=== PATIENT | male | born 1955 | race Caucasian/White ===

== ENCOUNTER 2016-09-13 08:55 | Inpatient (IN) | payer BC ==
[2016-08-15 07:56] VITALS: BMI 31.0
--- NOTE | 2016-08-15 08:38 | PAT Medication Instructions ---
Service Date Aug 15, 2016. Current Home Medication List Aspirin (Aspirin Ec), 81 MG PO QAM Fish Oil ([place]-3), 2 CAP PO QAM Lzxmalcktrm-Hmerpalaytc-Hum C- (Glucosamine Chondroitin), 2 CAP PO QAM Levothyroxine Sodium (Synthroid), 125 MCG PO QAM Meloxicam (Mobic), Unknown Dose PO QAM Multivitamin (Multivitamin), 1 TAB PO QAM Probiotic Product (Probiotic), 1 CAP PO QAM Tadalafil (Cialis), 2.5 MG PO PO PRN for NOON Tamsulosin Hcl (Flomax), 0.4 MG PO QPM Medication Instructions For Your Scheduled Surgery - Hold the following medications 10 days prior to surgery: Fish Oil ([place]-3), 2 CAP PO QAM Gtelksepgja-Tptkdjsrgcs-Ytu C- (Glucosamine Chondroitin), 2 CAP PO QAM Meloxicam (Mobic), Unknown Dose PO QAM - Hold the following medications 24 hours prior to surgery: Tadalafil (Cialis), 2.5 MG PO PO PRN for NOON - Hold the following medications the morning of surgery: Multivitamin (Multivitamin), 1 TAB PO QAM Probiotic Product (Probiotic), 1 CAP PO QAM - Take the following medications the morning of surgery with a sip of water: Levothyroxine Sodium (Synthroid), 125 MCG PO QAM Aspirin (Aspirin Ec), 81 MG PO QAM - Take the following medications as scheduled the night before surgery: Tamsulosin Hcl (Flomax), 0.4 MG PO QPM If you have any questions please call us at [phone] or [phone] ( [place]) or [phone]
[2016-08-15 09:25] LABS: BASO % 0.8 %; BASO ABS # 0.06 K/uL (0-0.2); COMPLETE YES; EOS % 3.1 %; IG% 0.3 %; LYMPH % 26.2 %; MEAN CELL VOLUME 91.9 fL (80-100); MEAN CORPUSCULAR HEMOGLOBIN 32.4 pg (25-34); MEAN CORPUSCULAR HGB CONC 35.2 g/dl (32-36); MEAN PLATELET VOLUME 10.9 fL (7.4-10.4); MONO % 11.4 %; NEUT % 58.2 %; PLATELET COUNT 229 K/uL (130-400); RED BLOOD COUNT 5.44 M/uL (4.7-6.1); WHITE BLOOD COUNT 7.63 K/uL (4.8-10.8)
[2016-08-15 09:34] LABS: PROTHROMBIN TIME (PATIENT) 10.5 SECONDS (9.0-12.0)
[2016-08-15 09:57] LABS: BLOOD UREA NITROGEN 22 mg/dl (7-18); BUN/CREATININE RATIO 15.6 (10-20); C-REACTIVE PROTEIN < 0.29 mg/dl (0-0.29); CALCIUM 9.7 mg/dl (8.5-10.1); CARBON DIOXIDE 28 mmol/L (21-32); CHLORIDE 107 mmol/L (98-107); GLUCOSE 90 mg/dl (70-99); POTASSIUM 4.6 mmol/L (3.5-5.1); SODIUM 142 mmol/L (136-145)
--- NOTE | 2016-09-04 22:34 | HISTORY & PHYSICAL EXAMINATION ---
DATE OF ADMISSION: 09/13/2016 CHIEF COMPLAINT: Right knee pain. 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 He has got a long history of right knee problems. He underwent left partial knee replacement about 5 months ago and has done well from this. He continues to be limited by his right knee pain and discomfort. As his left knee has gotten better, he has been more active and having more pain in his right knee. It is global pain. It is increased with weightbearing. He has been through extensive conservative treatment and would like to have his right knee replaced. PAST MEDICAL HISTORY: Includes: 1. Arthritis. 2. Prostate disease and question of early cancer. 3. Hypothyroidism. PAST SURGICAL HISTORY: Includes: 1. Left partial knee replacement done on 03/25/2016. 2. Left knee arthroscopy. 3. Multiple right knee operations, two in 1970s and one in 1973. ALLERGIES: None. CURRENT MEDICINES: Include: 1. Levothyroxine 125 mcg a day. 2. Flomax once a day. 3. Tramadol p.r.n. for pain. 4. Cialis. 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 He is . He does not drink. FAMILY HISTORY: Noncontributory. REVIEW OF SYSTEMS: Negative for diabetes, neurologic problems, vascular problems, bleeding disorders. Denies any chest pain, no shortness of breath. No history of DVT or PE. PHYSICAL EXAMINATION: GENERAL: Reveals a healthy, pleasant middle-aged male. He looks to be in good health. HEENT: Benign. NECK: Supple. No lymphadenopathy. LUNGS: Clear to auscultation. HEART: Regular rate and rhythm. ABDOMEN: Soft, nontender, nondistended. EXTREMITIES: Grossly neurovascularly intact except as follows. Examination of his right knee reveals the patient walks with a slight valgus alignment to his knee. He has got a pretty significant medial incision. His range of motion is about 5 degrees short of full extension, 110 degrees of flexion. Very small knee effusion. He has got crepitance with knee motion. X-RAYS: X-rays of the right knee were reviewed. They show advanced right knee tricompartmental DJD. He has got complete loss of his lateral joint space. He does have tricompartmental disease. Looks very chronic. He has got osteophytes in all 3 compartments. He does have a benign appearing chondral lesion/bony infarct in the distal femur. 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 He has failed conservative treatment and would like to have his right knee replaced. PLAN: We will take him to the operating room and do right total knee replacement. The risks and benefits of this procedure were explained to the patient including but not limited to DVT, PE, , infection, neurological injury, vascular injury, bleeding problem, pain, limited range of motion, stiffness, failure to relieve symptoms, persistent pain, need for revision surgery, etc. The patient understands and desires to proceed. Informed consent was obtained. The patient had preoperative workup. His workup was essentially all negative. EKG showed sinus bradycardia. Labs were all normal. We will likely put some vancomycin in the cement due to multiple surgeries in the past. I will see him back 2 weeks postop.
[~2016-09-13] VITALS: Ht 172.7 cm; Wt 91.9 kg
[2016-09-13] VITALS (8 sets, daily range): BP systolic 97–159; BP diastolic 63–94; PULSE 57–73; TEMP 36.4–37.2; O2SAT 93–98; Ht 172.7 cm; Wt 91.9 kg
[~2016-09-13 08:55] MED LIST: ACETAMINOPHEN 500 MG TAB PO SCH; ASPI81TA28 PO; BUPIVACAINE 0.25% 30 ML VIAL ONE; BUPIVACAINE 0.5 % 5 MG/1 ML PF 10ML VIAL ONE; BUPIVACAINE LIPOSOME 266 MG, BUPIVACAINE/EPINEPHRINE INJ 50 ML, SODIUM CHLORIDE 0.9% PF... INFIL SCH; CEFAZOLIN 2000 MG/60 ML D5W 60 ML IV SCH; FAMOTIDINE 20 MG TAB PO SCH; GABAPENTIN 300 MG CAP PO SCH; GLUC1CAP35 PO; LACTATED RINGER'S 1000ML 1,000 ML IV SCH; LACTATED RINGER'S 1000ML 500 ML IV ONE; LACTATED RINGER'S 1000ML IV SCH; LEVO125T72 PO; MELO7.5T5 PO; METOCLOPRAMIDE HCL 10 MG TAB PO SCH; MISCCAP80 PO; MULT-506 PO; OMEG10007 PO; SCOPOLAMINE 1.5 MG TDSY TD SCH; TADA2.5T PO; TAMS0.4C38 PO; TRANEXAMIC ACID INJ 1,000 MG in SODIUM CHLORIDE 0.9% 100ML 100 ML IV SCH
[2016-09-13] MEDS ORDERED: VANCOMYCIN HCL 1000MG/20ML VIAL ONE (09:28)
[2016-09-13] MEDS ORDERED: MIDAZOLAM HCL 1 MG/ML 2ML VIAL ONE ×2 (09:37)
[2016-09-13] MEDS ORDERED: FENTANYL CITRATE INJ 50 MCG/1 ML 2 ML VIAL ONE (09:37)
[2016-09-13] MEDS ORDERED: PROPOFOL IV EMULSION 10 MG/ML 20 ML VIAL IV ONE (09:37)
[2016-09-13] MEDS ORDERED: LIDOCAINE HCL 2% 2 ML VIAL (20MG/ML) ONE (09:37)
--- NOTE | 2016-09-13 10:29 | History & Physical Bridge Note ---
H&P Re-Evaluation Bridge Note: I have examined the patient, reviewed the History & Physical and in the interval since the performance of the History & Physical I have noted the following changes of clinical significance: No changes noted
[2016-09-13] MEDS ORDERED: BUPIVACAINE/EPINEPHRINE 0.25% 1:200,000 30 ML VIAL ONE (10:52)
[2016-09-13] MEDS ORDERED: BACITRACIN 50000 UNIT VIAL ONE (10:52)
[2016-09-13] MEDS ORDERED: SODIUM CHLORIDE 0.9% PF 50 ML VIAL ONE (10:52)
[2016-09-13] MEDS ORDERED: KETAMINE HCL INJ 50 MG/ML 10 ML VIAL ONE (11:02)
[2016-09-13] MEDS ORDERED: PHENYLEPHRINE 100MCG/ML 5ML SYR ONE (12:29)
--- NOTE | 2016-09-13 12:29 | [facility] Post Operative Brief Note ---
Immediate Operative Summary Operative Date Sep 13, 2016. Pre-Operative Diagnosis Advanced Right Knee Degenerative Joint Disease Post-Operative Diagnosis Advanced Right Knee Degenerative Joint Disease Procedure(s) Performed Right Total Knee Arthroplasty Surgeon Dr. Colon Insurance Auditor Surgeon(s) TAD Wright Estimated Blood Loss 50cc Findings Right Knee DJD Fluids (cc crystalloids) 1000 cc Specimens A. Right Knee Bone and Tissue Drains NONE Anesthesia Spinal Complication(s) None Disposition Recovery Room / PACU
[2016-09-13] MEDS ORDERED: ZOLPIDEM TARTRATE 5 MG TAB PO PRN (12:30)
[2016-09-13] MEDS ORDERED: DiphenhydrAMINE HCL 50 MG/ML VIAL IV PRN (12:30)
[2016-09-13] MEDS ORDERED: SILVER SULFADIAZINE 1% CR 50 GM JAR EXT PRN (12:30)
[2016-09-13] MEDS ORDERED: TAMSULOSIN HCL 0.4 MG CAP PO PRN (12:30)
[2016-09-13] MEDS ORDERED: ALUMINUM/MAGNESIUM/SIMETH (MAALOX MAX) 30 ML UDC PO PRN (12:30)
[2016-09-13] MEDS ORDERED: BISACODYL 10 MG SUPP PR PRN (12:30)
[2016-09-13] MEDS ORDERED: ONDANSETRON INJ 2 MG/ML 2 ML VIAL IV PRN ×2 (12:30→13:00)
[2016-09-13] MEDS ORDERED: TADALAFIL 2.5 MG PO PRN (12:30)
[2016-09-13] MEDS ORDERED: METOCLOPRAMIDE HCL INJ 5 MG/ML 2 ML VIAL IV PRN (12:30)
[2016-09-13] MEDS ORDERED: MAGNESIUM HYDROXIDE SUSP 30 ML UDC PO PRN (12:30)
--- NOTE | 2016-09-13 12:59 | DIAGNOSTIC IMAGING REPORT ---
TWO VIEWS RIGHT KNEE CLINICAL HISTORY: Postoperative examination. FINDINGS: AP and crosstable lateral portable views of the right knee are obtained. A right knee arthroplasty is in near anatomic alignment. There has been undersurface remodeling of the patella. No acute fracture is seen. There are expected postoperative changes around the knee including skin clips, soft tissue edema, and subcutaneous gas. IMPRESSION: Expected postoperative changes status post right knee arthroplasty. No acute fracture is seen. Electronically signed by: Kranthi Mejia M.D. 09/13/2016 12:58 PM Dictated Date/Time: 09/13/2016 12:58 PM
[2016-09-13] MEDS ORDERED: ATROPINE SULFATE 0.1 MG/ML 5ML SYR IV PRN (13:00)
[2016-09-13] MEDS ORDERED: EpHEDrine SULFATE INJ 50 MG/ML AMP IV PRN (13:00)
[2016-09-13] MEDS ORDERED: PROMETHAZINE HCL INJ 12.5 MG in SODIUM CHLORIDE 0.9% 50ML 50 ML IV PRN (13:00)
[2016-09-13] MEDS ORDERED: NALOXONE HCL 0.4 MG/1 ML VIAL/CARP IV PRN (13:00)
[2016-09-13] MEDS ORDERED: FLUMAZENIL 0.1 MG/1 ML 10 ML VIAL IV PRN (13:00)
--- NOTE | 2016-09-13 13:53 | Anesthesiology Progress Note ---
Anesthesia Post Op Note Date & Time Sep 13, 2016 at 13:53 Vital Signs Pain Intensity: 0 Vital Signs Past 12 Hours Date Time Temp Pulse Resp B/P Pulse Ox O2 Delivery O2 Flow Rate FiO2 09/13/16 13:30 61 21 100/61 95 Room Air 09/13/16 13:20 62 17 105/55 97 Room Air 09/13/16 13:10 59 16 96/53 95 Room Air 09/13/16 12:59 60 15 09/13/16 12:59 57 15 94 09/13/16 12:58 89/55 09/13/16 12:54 56 18 94 09/13/16 12:54 57 18 09/13/16 12:53 89/46 09/13/16 12:50 56 17 96 09/13/16 12:50 56 17 09/13/16 12:48 91/49 09/13/16 12:45 57 18 93 09/13/16 12:45 60 18 09/13/16 12:43 94/54 09/13/16 12:41 80/45 09/13/16 12:40 36.1 55 18 72/40 92 Room Air 09/13/16 12:40 58 10 93 09/13/16 12:40 58 10 09/13/16 09:20 36.8 73 16 159/94 96 Room Air Notes Mental Status: alert / awake / arousable, participated in evaluation Pt Amnestic to Procedure: Yes Nausea / Vomiting: adequately controlled Pain: adequately controlled Airway Patency, RR, SpO2: stable & adequate BP & HR: stable & adequate Hydration State: stable & adequate Neuraxial Anesthesia: was administered, sensory block is resolving Anesthetic Complications: no major complications apparent
--- NOTE | 2016-09-13 15:38 | OPERATIVE REPORT ---
DATE OF OPERATION: 09/13/2016 SURGEON: Yuniel Colon MD ELECTRICAL ENGINEERING TECHNICIAN: TAD Morgan PREOPERATIVE DIAGNOSIS: Right knee degenerative joint disease. POSTOPERATIVE DIAGNOSIS: Same. PROCEDURE PERFORMED: Right cemented posterior stabilized total knee arthroplasty. COMPLICATIONS: None. ESTIMATED BLOOD LOSS: 50 mL. FLUID REPLACEMENT: 1000 mL crystalloid fluid replacement. ANESTHESIA: Spinal with adductor canal block. DRAINS: None. SPECIMENS: Right knee sent for pathology. TOURNIQUET TIME: 59 minutes at 300 mmHg. 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 He underwent several surgeries on his right knee in the past with a pretty extensive open surgery back in the 70s with the medial and lateral incisions. He had subsequent undergone arthroscopy. He has developed persistent pain and discomfort in his knee, unresponsive to conservative treatment. X-rays revealed advanced right knee DJD. The patient elects to proceed with operative treatment. OPERATIVE FINDINGS: Operative findings revealed advanced right knee DJD. He had chronic ACL deficiency. He had grade 4 odfo-nv-vmkl disease of the lateral femoral condyle extensively with eburnation of the lateral femoral condyle and grade 4 elkn-vz-floi disease in all 3 compartments. He had a valgus aligned knee. OPERATIVE IMPLANTS: Operative implants consisted of: 1. Biomet Vanguard size 67.5 right posterior stabilized femoral component. 2. Biomet size 75 tibial tray. 3. A 12-mm posterior stabilized polyethylene insert. 4. A 34 x 8.5 all poly patella. OPERATIVE PROCEDURE: The patient was taken to the operating room, identified and placed on the operating table in the supine position. All contact areas were appropriately padded. IV antibiotics were provided by anesthesia team. A spinal anesthetic and adductor canal block had been provided in the holding area. Garrett catheter was placed in sterile fashion. Right thigh tourniquet was then placed and the right lower extremity was then prepped and draped in the usual sterile fashion. The right leg was elevated and exsanguinated with Esmarch and tourniquet was placed at 300 mmHg. An anterior approach to the right knee was then performed through a longitudinal incision centered right over the kneecap and just medial to the tibial tubercle. I ignored the other 2 incisions as they were 40 years ago and they were on the far medial and far lateral sides and not amenable to his knee replacement. Sharp dissection was carried out through the subcutaneous tissues down to the level of the extensor mechanism. I took great care trying to not undermine the skin at all to avoid any vascular issues with healing. A medial parapatellar arthrotomy incision was made. Some subperiosteal dissection was carried out medially. The fat pad was resected from beneath the patellar tendon. The lateral patellofemoral ligament was released. The patella was everted. I elected to cut the patella first as it was fairly large. The patella was cleaned of all soft tissues. Patella thickness measured 27 mm and cut down to 15. It was sized to a size 34 patella. I removed the lateral osteophyte, but did not prepare the patella until the end of the case. The patella was then everted and knee was flexed. The osteophytes were taken off the distal femur. The ACL was absent. The PCL was released from the distal femur and the tibia subluxated anteriorly. The external tibial alignment jig was then placed in the anterior face of the tibia and adjusted 14 mm medially. Proximal tibial cut was made to remove about 2-3 mm of bone from the medial side. The tibia was then sized to a size 75. Attention was then drawn to the femur. The distal femur was entered with a sharp drill bit. Intramedullary canal was suctioned. A right 5-degree valgus cutting guide was placed. Distal femoral cutting block was pinned in place. Distal femoral cut was made to take an additional 3 mm of bone off the distal femur. I then brought the knee out into extension. I did a little release of the IT band in order to equalize the extension gap. I did not need to do a posterolateral capsular release. Great care was taken throughout the procedure to protect the peroneal nerve at all times. The knee was then flexed. The femur was then sized left size 67.55. I did downsize this slightly. The AP cutting block was pinned parallel to the epicondylar axis, which was 4 degrees of external rotation. The anterior cut, anterior chamfer, posterior cut, and posterior chamfer cuts were made. Box cutting guide was placed and adjusted slightly lateral and the box cut was made. The knee was flexed. The remnants of the medial and lateral menisci were excised. The osteophytes were taken off the posterior aspect of the femur. A trial femoral component was placed. Tibial tray was pinned in maximum external rotation and drill and stem punch were used to create defect in proximal tibia for the tibial tray. The knee was then trialed and the 12-mm insert fit most appropriately. Attention was then drawn back to the patella. The patella was now prepared for a 34 patella. Lug holes were drilled. Patella button was placed. Knee was taken through range of motion and patella tracked nicely with no thumbs test. Attention was then drawn toward placement of the permanent components. All trial components were removed. Bone plug was placed in the distal femur to limit blood loss. A double batch of [place] G cement was mixed. I did add an additional gram of Vancomycin to the cement due to multiple prvious surgeries. A right size 67.5 posterior stabilized femoral component, size 75 tibial tray, 12 mm posterior stabilized polyethylene insert, and a 34 x 8.5 all poly patella were then cemented in place. Knee was brought out into full extension until cement hardened. A final cement check was then performed. Pericapsular tissues were injected with a total of 100 mL of a combination of 20 mL of Exparel, 30 mL of normal saline, and 50 mL of 0.25% Marcaine with epinephrine. The patient did receive 1 gram of tranexamic acid. The tourniquet was then let down for final tourniquet time of 59 minutes. Hemostasis was assured with use of electrocautery. The extensor mechanism was then closed with a combination of #1 PDS suture and #1 Vicryl suture in a [id number]-wy-nmjhd fashion. Extensor mechanism was checked and found to be intact. Subcutaneous tissues were then closed with 2-0 Dexon suture in a buried interrupted fashion. Skin was closed skin yves. Leg was then cleaned and dried and a sterile dressing with Xeroform, 4 x 4's, sterile cast padding and Louis bandage were applied. The patient then transferred to the recovery room in stable condition. The patient tolerated the procedure well with no complications. All needle and sponge counts were correct at the end of the operation. I attest to the content of the Intraoperative Record and any orders documented therein. Any exceptions are noted below. ESTRELLAD
[2016-09-13] MEDS: CHECK SCOPOLAMINE PATCH PLACEMENT SCH ×2 (16:00→23:46)
[2016-09-13] MEDS: D5W AND 1/2NSS + 20MEQ KCL 1,000 ML IV SCH ×2 (16:30→23:01)
[2016-09-13] MEDS: MoRPHine SULFATE 2 MG/ML CARP IV PRN ×4 (17:09→23:00)
[2016-09-13] MEDS: OXYCODONE HCL IR 5 MG TAB (IMMEDIATE RELEASE) PO PRN ×2 (17:52→23:45)
[2016-09-13] MEDS: KETOROLAC TROMETHAMINE 30 MG/ML VIAL IV. SCH ×2 (18:56→23:46)
[2016-09-13] MEDS: CEFAZOLIN IV 2,000 MG in DEXTROSE 5% 50ML 50 ML IV SCH (18:56)
[2016-09-13] MEDS: FERROUS GLUCONATE 324 MG TAB PO SCH (18:56)
[2016-09-13] MEDS: ACETAMINOPHEN 500 MG TAB PO SCH (18:57)
[2016-09-13] MEDS ORDERED: TRANEXAMIC ACID INJ 1,000 MG in SODIUM CHLORIDE 0.9% 100ML 100 ML IV ONE (19:00)
[2016-09-13] MEDS: DOCUSATE SODIUM 100 MG CAP PO SCH (20:45)
[2016-09-13] MEDS: TAPENTADOL ER 50 MG TABCR PO SCH (20:45)
[2016-09-13] MEDS: ASPIRIN 325 MG ECTAB PO SCH (20:46)
[2016-09-13] MEDS ORDERED: TAMSULOSIN HCL 0.4 MG CAP PO SCH (21:00)
[2016-09-14] MEDS: CEFAZOLIN IV 2,000 MG in DEXTROSE 5% 50ML 50 ML IV SCH (01:49)
[2016-09-14] MEDS: ACETAMINOPHEN 500 MG TAB PO SCH ×3 (01:51→11:34)
[2016-09-14 04:10] VITALS: BP 116/71; PULSE 66; TEMP 36.8; O2SAT 91
[2016-09-14] MEDS: KETOROLAC TROMETHAMINE 30 MG/ML VIAL IV. SCH ×2 (05:24→12:00)
[2016-09-14] MEDS: D5W AND 1/2NSS + 20MEQ KCL 1,000 ML IV SCH ×2 (05:24→12:00)
[2016-09-14] MEDS ORDERED: LEVOTHYROXINE 125 MCG TAB PO SCH (06:00)
[2016-09-14 06:15] LABS: HEMATOCRIT 38.4 % (42-52); MEAN CELL VOLUME 90.6 fL (80-100); MEAN CORPUSCULAR HEMOGLOBIN 31.4 pg (25-34); MEAN CORPUSCULAR HGB CONC 34.6 g/dl (32-36); MEAN PLATELET VOLUME 10.4 fL (7.4-10.4); PLATELET COUNT 187 K/uL (130-400); RED BLOOD COUNT 4.24 M/uL (4.7-6.1); WHITE BLOOD COUNT 11.68 K/uL (4.8-10.8)
[2016-09-14 06:52] LABS: BUN/CREATININE RATIO 12.9 (10-20); CALCIUM 7.9 mg/dl (8.5-10.1); CREATININE 1.5 mg/dl (0.60-1.40); POTASSIUM 4.1 mmol/L (3.5-5.1)
[2016-09-14 07:16] VITALS: BP 128/80; PULSE 68; TEMP 37.1; O2SAT 92
[2016-09-14] MEDS: CHECK SCOPOLAMINE PATCH PLACEMENT SCH (07:21)
[2016-09-14] MEDS: OXYCODONE HCL IR 5 MG TAB (IMMEDIATE RELEASE) PO PRN ×2 (07:21→13:42)
[2016-09-14] MEDS ORDERED: OXYC-57 PO (08:10)
[2016-09-14] MEDS ORDERED: ASPEC325 PO (08:10)
[2016-09-14] MEDS ORDERED: MORP15TA19 PO (08:10)
--- NOTE | 2016-09-14 08:11 | Discharge Instructions ---
Discharge Instructions Admission Reason for Admission: Right Knee Osteoarthritis Discharge Discharge Diagnosis / Problem: Right Knee Replacement Discharge Goals Goal(s): Decrease discomfort, Improve function, Increase independence, Improve disease control, Therapeutic intervention Activity Recommendations Activity Limitations: per Instructions/Follow-up section Weightbearing Status: Right weightbearing . Instructions / Follow-Up Instructions / Follow-Up ACTIVITY RECOMMENDATIONS: Physical Therapy: * You will go to physical therapy three times each week for four to six weeks after your surgery in order to regain your knee range of motion and to retrain your knee to work properly. * It is just as important to make sure you are getting your knee perfectly straight as it is to regain your knee bend. * Taking a pain pill an hour before therapy can help you have a more productive and comfortable therapy session. Home Exercise: * You were shown a series of exercises (heel props, heel slides, etc.) in the hospital. Do these exercises three to four times each day including the exercises you were shown in physical therapy. Walking: * Get up and walk several times each day. For the first four weeks, try not to stand or walk for more than one hour at a time. If you do stand or walk for more than one hour, you will not hurt anything, but your knee and leg will likely swell. * As you feel comfortable, you may change from the walker or crutches to a cane and then to independent walking. MEDICATIONS: New Medicine: * You will likely be taking one or more of these medications: 1. MS Contin - A long-acting pain medication. Take 1 tablet twice a day for the first ten days to decrease your baseline level of pain. 2. Percocet - A quick and shorter-acting pain medication. Take one to two tablets every four to six hours to lessen your pain. 3. Aspirin - Thins your blood to lessen the chance of forming a blood clot. * The most common side effects of pain medicine and iron are nausea and constipation. If nausea or constipation is too much of a problem or if you have any questions about your new medicines or doses, call [facility] at . We will try to help you manage these issues. VERY IMPORTANT TO READ AND REVIEW" Pain: * The immediate post-operative period after knee replacement surgery is often quite painful. * You are given a prescription for pain medicine. You should take it, as directed, when you need it, especially before physical therapy and before going to bed. Pain that interferes with sleep is very common and can last several months. * You will likely need pain medicine for the first four to six weeks. It will not stop all of the pain. The pain will lessen and as you feel better, you may change to milder pain medicine such as Tylenol. * The most common side effects of pain medicine are nausea and constipation, so don't take more than you need. SPECIAL CARE INSTRUCTIONS: TEDs/Elastic Stockings: * The white elastic stockings help limit swelling and prevent blood clots from forming in your legs. The more you wear them, the more they work. * Wear them for six weeks after knee replacement surgery and four weeks after partial knee replacement. Prevention of Infection: * Take antibiotics one hour before any dental cleaning, dental work, urological procedure, gastrointestinal procedure or any invasive surgery in order to prevent your new joint from getting infected. * You may get the antibiotics from the doctor performing the procedure or you may call our office at before and we will call in a prescription to the pharmacy of your choice. Things to Watch For: * Drainage from the incision site that occurs more than one week after your surgery. * Severely increased knee/leg pain or swelling. * Increased redness at the incision site. * Fever above 102 degrees Fahrenheit. * Unusual chest pain or shortness of breath. * Unusual pain or burning with urination. Call [facility] at with any of the above problems or if you have any questions about your medicines or recovery. FOLLOW UP VISIT: Make an appointment to see your doctor for approximately two weeks after surgery for a progress check and staple removal by calling the office at . Current Hospital Diet Patient's current hospital diet: Regular Diet Discharge Diet Recommended Diet: Regular Diet Procedures Procedures Performed: Right Total Knee Arthroplasty Pending Studies Studies pending at discharge: no Medical Emergencies . Who to Call and When: Medical Emergencies: If at any time you feel your situation is an emergency, please call [phone] immediately. . Non-Emergent Contact Non-Emergency issues call your: Surgeon . "Provider Documentation" section prepared by Yuniel Colon. VTE Core Measure Inpt VTE Proph given/why not?: Other Anticoagulation, T.E.D. Stockings, SCD's
[2016-09-14] MEDS: ASPIRIN 325 MG ECTAB PO SCH (08:45)
[2016-09-14] MEDS: FERROUS GLUCONATE 324 MG TAB PO SCH ×2 (08:45→12:30)
[2016-09-14] MEDS: DOCUSATE SODIUM 100 MG CAP PO SCH (08:48)
[2016-09-14] MEDS: TAPENTADOL ER 50 MG TABCR PO SCH (08:48)
[2016-09-14] MEDS ORDERED: PANTOprazole SOD 40 MG TAB PO SCH (09:00)
[2016-09-14] MEDS ORDERED: NON-FORMULARY MEDICATION (Probiotic Product (Probiotic) 1 CAP) PO SCH (09:00)
[2016-09-14] MEDS ORDERED: MULTIVITAMIN TAB PO SCH ×2 (09:00)
--- NOTE | 2016-09-14 09:14 | PROGRESS NOTE ---
DATE: 09/14/2016 SUBJECTIVE: A 61-year-old gentleman postop day 1 from right knee replacement. He is doing pretty well. Pretty painful last night, but doing much better this morning. No chest pain or shortness of breath. Not feeling dizzy or lightheaded. OBJECTIVE: VITAL SIGNS: Temperature is 37.1. Vital signs stable. GENERAL: Reveals a healthy, pleasant, middle-aged male. He is sitting up in bed and looks comfortable. LUNGS: Clear to auscultation. HEART: Regular rate and rhythm. ABDOMEN: Soft, nontender, nondistended. EXTREMITIES: Grossly neurovascularly intact except as follows: Examination of right lower extremity reveals the leg to be well aligned. He can dorsiflex and plantarflex his foot appropriately. He is neurologically intact. LABS: Hemoglobin 13.3. Hematocrit 38.4. White cell count 11.68. Electrolytes are stable. ASSESSMENT: A 61-year-old gentleman postop day 1 from right knee replacement, doing pretty well. Pain is under reasonable control. He is neurologically intact. PLAN: 1. DVT prophylaxis including thigh-high TEDs, SCD and aspirin twice a day. 2. PT/OT. Weightbearing as tolerated. Right total knee protocol. 3. Pain control, doing pretty well with current pain regimen. 4. Disposition: He is going to be discharged to home and do outpatient therapy. 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
[2016-09-14 11:00] VITALS: BP 138/84; PULSE 65; TEMP 37.1; O2SAT 93
[2016-09-14 13:22] VITALS: BP 138/84; PULSE 65; TEMP 37.1; O2SAT 93
--- NOTE | 2016-09-18 14:32 | DISCHARGE SUMMARY ---
ADMITTING PHYSICIAN AND SURGEON: Dr. Colon. ADMITTING DIAGNOSIS: Right knee degenerative joint disease. SURGERY PERFORMED: Right total knee arthroplasty. SECONDARY DIAGNOSES: Includes arthritis, prostate disease, hypothyroidism. CONSULTS: None obtained. HISTORY AND PHYSICAL EXAMINATION: Well documented in the patient's chart. HOSPITAL COURSE: The patient was admitted on 09/13/2016 underwent total knee arthroplasty. She tolerated the procedure well. There were no complications. He was transferred to the PACU postoperatively and later to the orthopedic floor for further care. He was given Ancef for antibiotic prophylaxis, ANTONIA stockings, SCDs and aspirin for DVT prophylaxis. Her hemoglobin, hematocrit and vital signs were monitored during his hospital stay and remained stable, did not require any blood transfusions. There were no complications. By postoperative day 1, he was tolerating a general diet, pain was controlled with oral pain medicine. He was participating in physical therapy and had no signs or symptoms of deep vein thrombosis. On postop day 1, he was discharged home in good condition. He was given new prescriptions for aspirin 325 mg b.i.d., MS Contin and Percocet. Continue his home medications with the exception of his home dose of aspirin which was changed. Continue physical therapy, weightbearing as tolerated. ANTONIA stockings and follow up in 10-12 days or sooner if there are problems or concerns.
== END 2016-09-14 13:50 | disposition home or self-care (01) | DRG 470 ==
LOC: ENRESERVTM → ENRESERVDT → C.ACU 08:55 → C.3E 12:33
PROVIDERS: ADMIT Orthopaedic Surgery Sports Medicine; ATTEND Orthopaedic Surgery Sports Medicine
PROC: 0SRC0J9 Replacement of Right Knee Joint with Synthetic Substitute, Cemented, Open Approach (ICD-10-PCS; principal; 2016-09-13 10:45)
DX: M17.11 Unilateral primary osteoarthritis, right knee (principal); M21.061 Valgus deformity, not elsewhere classified, right knee; E03.9 Hypothyroidism, unspecified; N40.0 Benign prostatic hyperplasia without lower urinary tract symptoms; E66.9 Obesity, unspecified; Z68.31 Body mass index [BMI] 31.0-31.9, adult; Z96.652 Presence of left artificial knee joint; Z79.1 Long term (current) use of non-steroidal anti-inflammatories (NSAID); Z79.82 Long term (current) use of aspirin; Z79.899 Other long term (current) drug therapy; Z79.891 Long term (current) use of opiate analgesic

== ENCOUNTER 2018-07-17 08:02 | Inpatient (IN) ==
--- NOTE | 2018-07-06 13:34 | Anesthesiology Consultation ---
Date of Service July 06, 2018 Assessment & Plan (1) Encounter for pre-operative examination: Chart Review Chart Review: Acceptable Risk for Surgery and Patient seen in Pre Admission Testing Teaching & Discussion Instructed NPO after midnight before surgery, except medications with 15 cc of water. Medication instructions provided according to the PAT guidelines. History Surgery Operation Date: 07/17/18 08:50 Proposed Procedures p Left Knee Revision Uni Compartment to Total Knee Replacement - Yuniel Colon MD Height/Weight Height: 5 ft 7 in Weight: 88.4 kg Allergies Allergy/AdvReac Type Severity Reaction Status Date / Time No Known Allergies Allergy Verified 06/30/18 12:00 Medications Home Medications Medication Instructions Recorded Confirmed Last Taken ascorbic acid (vitamin C) [Vitamin 1 g PO QAM 06/30/18 06/30/18 Unknown C] aspirin [Aspirin Low Dose] 81 mg PO QAM 06/30/18 06/30/18 Unknown calcium carbonate [Calcium 600] 600 mg PO QAM 06/30/18 06/30/18 Unknown cholecalciferol (vitamin D3) 5,000 unit PO QAM 06/30/18 06/30/18 Unknown [Vitamin D3] fish oil-E-fatty acid5-[id number] 4,000 mg PO QAM 06/30/18 06/30/18 Unknown lactobacillus combination no.4 3,000 mmu cells PO QAM 06/30/18 06/30/18 Unknown [Probiotic] levothyroxine 125 mcg PO QAM 06/30/18 06/30/18 Unknown multivitamin 1 tab PO QAM 06/30/18 06/30/18 Unknown tadalafil [Cialis] 2.5 mg PO Q OTHER DAY 06/30/18 06/30/18 Unknown tamsulosin [Flomax] 0.4 mg PO QPM 06/30/18 06/30/18 Unknown Past Medical History Medical History Enlarged prostate Hypothyroid Osteoarthritis Past Surgical History Surgical History History of carpal tunnel surgery of left wrist History of carpal tunnel surgery of right wrist History of cryosurgery left eye History of hand surgery left and right trigger fingers History of left knee replacement partial Hx of LASIK both eyes Hx of arthroscopy of left knee Hx of colonoscopy Hx of hernia repair x3 Hx of meniscectomy of right knee plus ligament and medial menisectomy Hx of total knee replacement right Past Anesthesia History No Hx of Anesthesia Complications and No Family Hx of Anesthesia Complications 2017 R TKA--SAB + PNB no issues, pt very satisfied with anesthesia. History of PONV No Motion Sickness Screening History of Motion Sickness: Yes Social History Smoking Status: Never smoker Do You Dip or Chew Tobacco: No Hx Alcohol Use: No Hx Substance Use: No Exercise / Class Metabolic Activity II 4-5 Yardwork/Stairs/Walk up hill Review of Systems Pt denies any recent chest pain, shortness of breath, palpitations, cough, fever or URI. Physical Exam Vital Signs BP: 132/85 P: 65 SPO2: 94% RA T: 98.4 F R: 16 ENMT Mouth: + dentition abnormality (missing one bottom R molar) and + dental restorations (one cap on back molar); no chipped teeth and no loose teeth Thyromental Distance: > or= 3.5 Finger Breadths (3) Mallampati Class: II Neck normal visual inspection; neck extension not limited Respiratory normal respiratory effort Auscultation: lungs clear to auscultation bilaterally Cardiovascular Rate/Rhythm: regular rate and regular rhythm Heart Sounds: no murmur Vessels: no carotid bruit Extremities: no edema Testing Electrocardiogram Date: 07/06/18 Findings: + SB @ (54) Chest X-Ray Date: 07/06/18 Findings: + NAD Echocardiogram Date: 10/18/14 EF: 60-65% Left ventricle normal in size, thickness, wall motion and contractility. Impaired relaxation pattern. Right ventricle within normal limits. No significant valvular disease. Stress Test Date: 06/07/15 Resting EF: 68% No evidence of ischemic change or old FL. Normal wall motion. Laboratory Results 07/06/18 14:45 07/06/18 14:45 Blood Type O Positive 07/06/18 14:45 Antibody Screen NEGATIVE 07/06/18 14:45 PT 10.3 Seconds (9.0-12.0) 07/06/18 14:45 INR 1.0 (0.9-1.1) 07/06/18 14:45 APTT 24.9 Seconds (21.0-31.0) 07/06/18 14:45 *Note sent to PCP re: Cr -- Per PCP this is not new, has been since 2013, stable , this is within normal range.
--- NOTE | 2018-07-06 13:35 | PAT Medication Instructions ---
Medication Instructions Date of Service July 06, 2018 Home Medications ascorbic acid (vitamin C) 1 g PO QAM aspirin [Aspirin Low Dose] 81 mg PO QAM calcium carbonate [Calcium 600] 600 mg PO QAM cholecalciferol (vitamin D3) 5,000 unit PO QAM fish oil-E-fatty acid5-[id number] 4,000 mg PO QAM lactobacillus [Probiotic] 3,000 mmu cells PO QAM levothyroxine 125 mcg PO QAM multivitamin 1 tab PO QAM tadalafil [Cialis] 2.5 mg PO Q OTHER DAY tamsulosin [Flomax] 0.4 mg PO QPM STOP taking 2 weeks before surgery fish oil-E-fatty acid5-[id number] 4,000 mg PO QAM If surgery is within 2 weeks, stop taking as soon as possible. DO NOT take the morning of surgery ascorbic acid (vitamin C) 1 g PO QAM calcium carbonate [Calcium 600] 600 mg PO QAM cholecalciferol (vitamin D3) 5,000 unit PO QAM lactobacillus [Probiotic] 3,000 mmu cells PO QAM multivitamin 1 tab PO QAM Take morning of surgery With a small sip of water, OTHERWISE NOTHING TO EAT OR DRINK AFTER MIDNIGHT: aspirin [Aspirin Low Dose] 81 mg PO QAM levothyroxine 125 mcg PO QAM Take evening before surgery tadalafil [Cialis] 2.5 mg PO Q OTHER DAY tamsulosin [Flomax] 0.4 mg PO QPM Other Notes If you have any questions please call us at [phone] or [phone] or [phone] or [phone]
--- NOTE | 2018-07-06 15:00 | XRay Report ---
TWO VIEW CHEST CLINICAL HISTORY: Preoperative examination. FINDINGS: PA and lateral chest radiographs are compared to study dated 03/04/2016. The cardiomediastina l silhouette is unremarkable, noting atherosclerotic calcification of the thoracic aorta. There is m ild left basilar atelectasis. The lungs and pleural spaces are otherwise clear. There is no pneumotho rax. The bony thorax appears intact. Degenerative change and DISH are noted in the thoracic spine. IMPRESSION: No active disease in the chest. Electronically signed by: Kranthi Mejia M.D. 07/06/2018 2:59 PM
[2018-07-06 15:45] LABS: Basophils # (auto) 0.04 K/uL (0-0.2); Basophils % (auto) 0.5 %; Eosinophils % (auto) 3.7 %; Hematocrit (blood only) 48.4 % (42-52); Hemoglobin 16.4 g/dL (14.0-18.0); Immature Granulocytes # (auto) 0.02 K/uL (0.00-0.02); Immature Granulocytes % (auto) 0.2 %; Lymphocytes # (auto) 1.83 K/uL (1.2-3.4); Lymphocytes % (auto) 22.8 %; Mean Corpuscular Hgb Conc 33.9 g/dL (32-36); Mean Corpuscular Volume 92.2 fL (80-100); Mean Platelet Volume 11.3 fL (7.4-10.4); Monocytes # (auto) 0.88 K/uL (0.11-0.59); Monocytes % (auto) 10.9 %; Neutrophils # (auto) 4.97 K/uL (1.4-6.5); Neutrophils % (auto) 61.9 %; Platelet Count 247 K/uL (130-400); RDW Coefficient of Variation 13.2 % (11.5-14.5); RDW Standard Deviation 44.6 fL (36.4-46.3); Red Blood Count 5.25 M/uL (4.7-6.1); White Blood Count 8.04 K/uL (4.8-10.8)
[2018-07-06 15:53] LABS: BUN Creatinine Ratio 14.4 (10-20); C Reactive Protein 0.55 mg/dl (0-0.29); Calcium 9.9 mg/dl (8.5-10.1); Creatinine Clr Calc Pharmacy 53.1 ml/min; Est GFR (African American) 56.7; Est GFR (Non-African American) 48.9; Potassium 4.2 mmol/L (3.5-5.1)
[2018-07-06 15:59] LABS: Partial Thromboplastin Time 24.9 Seconds (21.0-31.0); Prothrombin Time 10.3 Seconds (9.0-12.0)
--- NOTE | 2018-07-11 10:13 | History and Physical Report ---
DATE OF ADMISSION: 07/17/2018 CHIEF COMPLAINT: Persistent left knee pain and discomfort after partial knee replacement 2-1/2 years ago. HISTORY OF PRESENT ILLNESS: A 63-year-old male, now a parttime retired physical therapist, who presents for a followup and persistent left knee pain after partial knee replacement 2-1/2 years ago. He had his partial knee replacement for isolated medial compartment DJD. He did pretty well for the first 6 months or so and then just had kind of persistent pain ever since. I have seen him on multiple occasions and treated him with some intermittent injections, which did seem to help some. The last shot became less successful. It is mostly medial-sided pain. He had no problems with the wound healing, drainage, or swelling afterwards. He really does not have much swelling, just pain. It is limiting his activities. He really enjoys hiking and walking and caused significant pain with this. He does report some occassional clicking and "catching" that he say is apinful and then it goes away. Of note, we did do a full knee replacement on his right knee back in 08/2016, and he has done well from this. It swells intermittently, but he has no pain and very happy with it. PAST MEDICAL HISTORY: 1. BPH. 2. Hypothyroidism. PAST SURGICAL HISTORY: Include 1. Left partial knee replacement done on 03/25/2016. 2. Right knee replacement done on 09/13/2016. 3. Left knee arthroscopy. 4. Multiple right knee operations in the 70s. ALLERGIES: None. MEDICATIONS: Current medicines include: 1. Levothyroxine 125 mcg a day. 2. Flomax. 3. NSAIDs intermittently. 4. Cialis. SOCIAL HISTORY: A 63-year-old male. 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 He is . FAMILY HISTORY: Noncontributory. REVIEW OF SYSTEMS: Negative for diabetes, neurologic problem, vascular problem, bleeding disorders. No chest pain, no shortness of breath. No history of DVT or PE. No bleeding problems. He has not had any fevers or rashes. PHYSICAL EXAMINATION: GENERAL: Examination reveals a healthy and pleasant middle-aged male, looks to be in good health. HEENT: Benign. NECK: Supple. No lymphadenopathy. LUNGS: Clear to auscultation. CARDIOVASCULAR: Heart has a regular rate and rhythm. ABDOMEN: Soft, nontender, nondistended. EXTREMITIES: Grossly neurovascularly intact except as follows: Examination of the left knee reveals patient walks pretty normally. I do not detect much in the way of a limp. Examination of the left knee reveals well-healed incision. I do not detect much in the way of an effusion at all. He does have tenderness over his medial joint line in the medial tibia area. Range of motion is 0-125. He has no instability. No pain with hip motion. Examination of the right knee reveals a well-healed incision. There is a small knee effusion in his right knee. Knee alignment looks good. Range of motion is 0-125. No instability. IMAGING: X-rays of the left knee reviewed, it showed a left partial knee replacement. Components looked to be in okay position. There may be a little lucency underneath the tibial tray, which has been kind of stable but nonprogressive, maybe just a little bit of arthritis in the lateral compartment. ASSESSMENT: A 63-year-old gentleman, 2-1/2 years out from a left knee replacement with persistent pain and discomfort, without any obvious structural problems. We had a long discussion as far as treatment. He has been through extensive conservative treatment over the past 2 years without much relief. He would really like to have something done if at all possible as it is limiting his activities. PLAN: We had a long discussion as far as treatment. We discussed knee arthroscopy as he reports some intermittent mechanical symptoms, but I do not think that would be very predictable as far as helping him. After extensive discussion, he would like to just have this converted to a knee replacement as that is what he has on his other side. I did tell him that the results are less predictable, and there is nothing obvious on x-ray that I can clearly fix or make better, but it is really his best option to have a more pain free knee, I believe. He had no problems with infection, and his infectious workup has been negative. PLAN: We are going to take him to the operating room and will do a left revision of a partial to full knee replacement. The risks and benefits of this procedure were explained to patient including but not limited to DVT, PE, , infection, neurological injury, vascular injury, bleeding problem, pain, limited range of motion, stiffness, failure to relieve the symptoms, incomplete relief of symptoms, need for further surgery in the future, incomplete relief of pain. The patient understands and desires to proceed. Informed consent was obtained. We did do an infectious workup, and his sedimentation rate was normal at 12. C-reactive protein just a little bit high. He certainly has no signs of effusion in his knee, and I did not feel like there is any fluid to aspirate. We may have to put a tibial stem in and will likely put some vancomycin in his cement. He is planning to be discharged to home. SIA
[~2018-07-17 08:02] MED LIST changes: -ASPI81TA28 PO; -BUPIVACAINE 0.25% 30 ML VIAL ONE; -BUPIVACAINE LIPOSOME 266 MG, BUPIVACAINE/EPINEPHRINE INJ 50 ML, SODIUM CHLORIDE 0.9% PF... INFIL SCH; +BUPIVACAINE LIPOSOME/PF 266 MG, BUPIVACAINE/EPINEPHRINE 50 ML, SODIUM CHLORIDE 0.9% 30 ... INFIL SCH; -CEFAZOLIN 2000 MG/60 ML D5W 60 ML IV SCH; +CEFAZOLIN 2000MG 2,000 MG/15 ML SYR IV SCH; -GABAPENTIN 300 MG CAP PO SCH; +GABAPENTIN 300 MG PO SCH; -GLUC1CAP35 PO; -LACTATED RINGER'S 1000ML 1,000 ML IV SCH; -LACTATED RINGER'S 1000ML 500 ML IV ONE; -LACTATED RINGER'S 1000ML IV SCH; -LEVO125T72 PO; +LR 60ML/HR IV SCH; -MELO7.5T5 PO; -METOCLOPRAMIDE HCL 10 MG TAB PO SCH; +METOCLOPRAMIDE HCL 10 MG TABLET PO SCH; -MISCCAP80 PO; -MULT-506 PO; -OMEG10007 PO; +ROPIVACAINE 0.5% 5 MG/ML 30 ML VIAL ONE; -TADA2.5T PO; -TAMS0.4C38 PO; +TRANEXAMIC ACID 1,000 MG **IV Intra-op IV SCH; -TRANEXAMIC ACID INJ 1,000 MG in SODIUM CHLORIDE 0.9% 100ML 100 ML IV SCH
[2018-07-17] MEDS: LR 500ML BOLUS, THEN 15ML/HR IV SCH ×7 (09:01→17:17)
[2018-07-17] MEDS ORDERED: MIDAZOLAM HCL 1 MG/ML 2ML VIAL ONE ×2 (09:22→12:59)
[2018-07-17] MEDS ORDERED: PROPOFOL IV EMULSION 10 MG/ML 20 ML VIAL IV ONE (09:22)
[2018-07-17] MEDS ORDERED: fentaNYL citrate 100 MCG/2 ML VIAL ONE (09:22)
[2018-07-17] MEDS ORDERED: ePHEDrine sulfate 50 MG/ML AMP IV PRN (09:59)
[2018-07-17] MEDS ORDERED: ATROPINE SULFATE 0.1 MG/ML 5ML SYR IV PRN (09:59)
[2018-07-17] MEDS ORDERED: HYDROmorphone INJ 1 MG/ML SYRINGE IV PRN (09:59)
[2018-07-17] MEDS ORDERED: PROMETHAZINE HCL 12.5 MG in SODIUM CHLORIDE 0.9% 50 ML IV PRN (09:59)
[2018-07-17] MEDS ORDERED: ONDANSETRON INJ 2 MG/ML 2 ML VIAL IV PRN ×2 (09:59→15:37)
[2018-07-17] MEDS ORDERED: PHENYLEPHRINE 100MCG/ML 5ML SYR IV PRN (09:59)
[2018-07-17] MEDS ORDERED: fentaNYL citrate 100 MCG/2 ML VIAL IV PRN (09:59)
--- NOTE | 2018-07-17 10:53 | History & Physical Bridge Note ---
Date of Service July 17, 2018 History & Physical Bridge Note I have examined the patient, reviewed the History & Physical and in the interval since the performance of the History & Physical I have noted the following changes of clinical significance: no changes noted
[2018-07-17] MEDS ORDERED: SODIUM CHLORIDE 0.9% PF 50 ML VIAL ONE (11:03)
[2018-07-17] MEDS ORDERED: BUPIVACAINE LIPOSOME 1.3% 266 MG/20 ML VIAL INFIL ONE (11:03)
[2018-07-17] MEDS ORDERED: BACITRACIN INJ 50,000 UNIT VIAL ONE (11:03)
[2018-07-17] MEDS ORDERED: EPINEPHrine INJ 1 MG/ML AMP ONE (11:04)
[2018-07-17] MEDS ORDERED: VANCOMYCIN HCL 1000MG/20ML VIAL ONE (11:05)
[2018-07-17] MEDS ORDERED: BUPIVACAINE 0.25% 30 ML VIAL ONE (11:05)
--- NOTE | 2018-07-17 13:51 | Post Operative Brief Note ---
Immediate Post Op Note v1 Date of Surgery July 17, 2018 Pre & Post Diagnosis Operation Date: 07/17/18 10:40 Pre-Op Diagnosis: Painful Uni Compartment Left Knee Post-Op Diagnosis: Painful Uni Compartment Left Knee Procedure Operation Date: 07/17/18 10:40 Actual Procedures p Left Knee Revision Uni-Compartment to Total Knee Replacement(Left) - Yuniel Colon MD Surgeon Yuniel Colon MD Care Trainer Leeroy, PAC Estimated Blood Loss 50 Findings Consistent with Post-Op Diagnosis Fluids 1400 cc Specimens Left Knee + Implants Drains Hayward Catheter (A 16 [place] hayward catheter was inserted by TAD Wright, without difficulty, clear yellow urine obtained, output to be monitored by Anesthesia.) Anesthesia Type Spinal MAC Complications none Disposition Accompanied Patient To Recovery: No Disposition: Recovery Room
--- NOTE | 2018-07-17 14:28 | XRay Report ---
LEFT KNEE 2 VIEWS History: Left total knee arthroplasty. Degenerative arthritis. Postop. FINDINGS: The patient is status post a left total knee arthroplasty. The hardware is intact. No fract ure or dislocation. Skin yves are in place. IMPRESSION: Left total knee arthroplasty. No evidence for hardware complication. Electronically signed by: Hector Turner M.D. 07/17/2018 2:26 PM
--- NOTE | 2018-07-17 14:57 | Anesthesiology Progress Note ---
Date of Service July 17, 2018 Anesthesia Post Procedure Vital Signs Vital Signs: Temp Pulse Pulse Resp BP BP Pulse Ox 07/17/18 14:45 58 L 20 99/61 L 94 07/17/18 14:35 65 20 109/70 96 07/17/18 14:25 37.0 C 64 21 101/68 96 07/17/18 14:15 65 18 107/61 96 07/17/18 14:05 64 17 108/62 96 07/17/18 13:57 36.3 C L 65 16 104/58 L 97 07/17/18 08:41 37 C 68 18 153/89 H 96 Pain Intensity Left Knee: Pain Intensity: 0 Notes Mental Status: alert / awake / arousable Patient Amnestic to Procedure: Yes Nausea / Vomiting: adequately controlled Pain: adequately controlled Airway Patency, RR, SpO2: stable & adequate BP & HR: stable & adequate Neuraxial Anesthesia: was administered and sensory block is resolving Anesthetic Complications: no major complications apparent
[2018-07-17] MEDS ORDERED: ALUMINUM/MAGNESIUM SUSP 30 ML UDC PO PRN (15:37)
[2018-07-17] MEDS ORDERED: HYDROmorphone INJ 0.5 MG/0.5 ML SYR IV PRN (15:37)
[2018-07-17] MEDS ORDERED: METOCLOPRAMIDE HCL INJ 5 MG/ML 2 ML VIAL IV PRN (15:37)
[2018-07-17] MEDS ORDERED: MAGNESIUM HYDROXIDE SUSP 30 ML UDC PO PRN (15:37)
[2018-07-17] MEDS ORDERED: BISACODYL 10 MG SUPP PR PRN (15:37)
[2018-07-17] MEDS: SODIUM CHLORIDE 0.9% 1000ML 1,000 ML IV SCH (16:04)
[2018-07-17] MEDS: KETOROLAC TROMETHAMINE 15 MG/ML VIAL IV SCH ×2 (16:06→22:22)
[2018-07-17] MEDS: CHECK SCOPOLAMINE PATCH PLACEMENT SCH ×2 (16:06→23:42)
[2018-07-17] MEDS: FERROUS GLUCONATE 324 MG TAB PO SCH (16:06)
[2018-07-17 16:26] LABS: Hematocrit (blood only) 45.3 % (42-52); Hemoglobin 15.2 g/dL (14.0-18.0); Mean Corpuscular Hgb Conc 33.6 g/dL (32-36); Mean Platelet Volume 10.8 fL (7.4-10.4); Platelet Count 212 K/uL (130-400); RDW Coefficient of Variation 13.2 % (11.5-14.5); RDW Standard Deviation 44.7 fL (36.4-46.3); Red Blood Count 4.87 M/uL (4.7-6.1); White Blood Count 10.32 K/uL (4.8-10.8)
[2018-07-17] MEDS: CEFAZOLIN 2000MG 2,000 MG/15 ML SYR IV SCH (18:56)
[2018-07-17] MEDS ORDERED: TRANEXAMIC ACID 1,000 MG in 0.9 % SODIUM CHLORIDE 100 ML IV SCH (20:00)
[2018-07-17] MEDS: OXYCODONE HCL IR 5 MG TAB (IMMEDIATE RELEASE) PO PRN (20:16)
[2018-07-17] MEDS: ASPIRIN 81 MG ECTAB PO SCH (20:18)
[2018-07-17] MEDS: TAMSULOSIN HCL 0.4 MG CAP PO SCH (20:18)
[2018-07-17] MEDS: SENNA 8.6 MG TAB PO SCH (20:19)
[2018-07-17] MEDS: DOCUSATE SODIUM 100 MG CAP PO SCH (20:23)
[2018-07-17] MEDS: TAPENTADOL HCL ER 50 MG TABCR PO SCH (20:23)
[2018-07-17] MEDS: ACETAMINOPHEN 500 MG TAB PO SCH (21:06)
[2018-07-18] MEDS: SODIUM CHLORIDE 0.9% 1000ML 1,000 ML IV SCH (00:42)
[2018-07-18] MEDS: CEFAZOLIN 2000MG 2,000 MG/15 ML SYR IV SCH (02:28)
[2018-07-18] MEDS: OXYCODONE HCL IR 5 MG TAB (IMMEDIATE RELEASE) PO PRN ×5 (02:28→21:12)
--- NOTE | 2018-07-18 03:37 | Operative Report ---
DATE OF OPERATION: 07/17/2018 SURGEON: Yuniel Colon MD STRIPE MATCHER: TAD Morgan PREOPERATIVE DIAGNOSIS: Left painful partial knee replacement. POSTOPERATIVE DIAGNOSIS: Left painful partial knee replacement. PROCEDURE PERFORMED: Left revision total knee replacement from a partial knee to a full knee replacement. COMPLICATIONS: None. ESTIMATED BLOOD LOSS: 50 mL FLUID REPLACEMENT: 1400 mL crystalloid fluid replacement. TOURNIQUET TIME: 95 minutes at 300 mmHg. ANESTHESIA: Spinal. DRAINS: None. SPECIMENS: Left knee and left implant sent for pathology. In addition, there is also a frozen section sent for number of polys per high power field and one set of culture sent for Gram stain, aerobic and anaerobic culture. 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 He underwent a left partial knee replacement about 2-1/2 years ago. He was doing pretty well for the first 6 months and actually had his right knee replaced. His right knee has continued to do well, but felt persistent pain and discomfort in the medial side of the knee. I have been following for the past 2 years without any real clear diagnosis. Knee exam has been pretty benign, but he seemed to have peristent pain with only temporary response to injection treatment. He elected to proceed with revision surgery. I did make him fully aware of that the results of this will be less predictable without having a clear etiology for pain. He had a negative infectious workup. OPERATIVE IMPLANTS: Operative implants consisted of: 1. A Biomet Vanguard size 67.5 left posterior stabilized femoral component. 2. Biomet size 71 tibial tray with an 80 mm x 16 mm offset stem with a 5mm offset small cruciate wing. 3. An 18 mm polyethylene insert. 4. A 31 x 8 All-Poly patella fix. OPERATIVE PROCEDURE: Patient was taken to the operating room, identified and placed on the operating table in supine position. All contact areas were appropriately padded. IV antibiotics followed by anesthesia team. A spinal anesthetic had been implemented in holding area. Garrett catheter was placed in sterile fashion. A left thigh tourniquet was then placed and the left lower extremity was then prepped and draped in the usual sterile fashion. The left leg was elevated and exsanguinated with an Esmarch, and tourniquet was placed at 300 mmHg. An anterior approach of the left knee was then performed through a longitudinal incision using the previous incision and slightly distally and approximately over the quad tendon. Sharp dissection was carried down through subcutaneous tissue down to the level of the extensor mechanism. A medial parapatellar arthrotomy incision was made. Some subperiosteal dissection was carried out medially. The patella tendon was extensively scarred in at proximal tibia and I had to remove the last scar tissue in the fat pad and mobilize it. A complete synovectomy of the suprapatellar pouch and medial and lateral gutters was performed. This tissue was sent for frozen section, which revealed essentially zero polys per high power field. This fluid was also sent for gram stain, aerobic culture, which revealed no organisms. We elected to proceed with revision. The ACL and PCL were released from the distal femur. The tibia was then subluxated anteriorly. I used the ACL saw and the stacked osteotome technique to remove the tibial compnent, which came out quite easily. The tibial eminence was resected. I then reamed the tibia up to a size 16. The intramedullary guide was placed and the proximal tibial cut was made to remove about a millimeter of bone from most sufficient aspect of the medial side. I did remove the tray with an ACL blade without much difficulty. There was no gross looseness to the tray, but it was fairly easy to remove. I then sized the tibia to a size 71. I did downsize this a little bit more in order to get external rotation to maximize patella tracking. The proximal tibia was prepared. The tibial tray was then assembled into a place that fit nicely. Attention was then drawn to femur. The distal femur was entered with sharp drill bit. Intramedullary canal was suctioned. The left 6 degree valgus cutting guide was placed. I pinned the guide in place and then removed the guide. I then used an ACL saw blade to release the distal femoral component. I then made a distal femoral cut without difficulty. The femoral component was well fixed after sometime in removal. I then sized the femur to a size 67.5. The AP cutting block was then pinned parallel to the epicondylar axis and I took great care to do this. We cannot supreme court judge this based on the condyles into the previous partial knee replacement and deficiency medially. The anterior cut, anterior chamfer cut, posterior cut, posterior chamfer cuts were made. Box cutting guide was placed and adjusted slightly lateral, and the box cut was made. The knee was flexed. The remnants of the lateral meniscus were excised. The posterior osteophytes were removed. Trial femoral component was placed. I then trialed the knee and an 18 mm insert fit most appropriately. There are still just a little bit of laxity, but I decided to accept this as I felt this fit most appropriately. Attention was then drawn to the patella. The patella was cleaned of all soft tissues. Patella thickness measured 20 mm in thickness and was cut down to 15. It was sized to a size 31 patella. Lug holes were drilled for a 31 patella. The lateral osteophyte was removed. Patella button was placed. The knee tracked nicely with no thumbs test. Attention was then drawn toward placement of permanent components. All trial components were removed. A bone plug was placed in the distal femur to limit blood loss. A double batch of [place] G cement was mixed with an additional gram of vancomycin due to revision situation. A Biomet Vanguard size 67.5 left posterior bifemoral component, size 71 tibial tray with small cruciate wing, an 80 x 16 mm with 5mm offset stem were placed into position cementing metaphysis and surface only followed by a 31 x 8 All-Poly patella. The knee was brought into full extension until cement hardened. A final cement check was then performed. Pericapsular tissues were injected with a total of 100 mL of a combination of 20 mL Exparel, 30 mL of normal saline, 50 mL of 0.25 Marcaine with epinephrine. The patient did receive 1 g of tranexamic acid. The tourniquet was then let down for final tourniquet time of 95 minutes. Hemostasis was assured with use of electrocautery. The extensor mechanism was then closed with a combination of #1 PDS suture and #1 Vicryl suture in a [id number] fashion. Extensor mechanism was checked and found to be intact. Subcutaneous tissues were then closed with #2 Dexon suture in a buried interrupted fashion. Skin was closed with skin yves. Leg was then cleaned and dried and a sterile dressing of Xeroform, 4 x 4, sterile cast padding, and Louis bandage were applied. The patient was then transferred to the recovery room in stable condition. The patient tolerated the procedure well with no complications. All needle and sponge counts were correct at the end of the operation. I attest to the content of the Intraoperative Record and any orders documented therein. Any exceptions are noted below. SIA
[2018-07-18] MEDS: ACETAMINOPHEN 500 MG TAB PO SCH ×3 (05:37→21:14)
[2018-07-18] MEDS: KETOROLAC TROMETHAMINE 15 MG/ML VIAL IV SCH ×4 (05:38→21:13)
[2018-07-18] MEDS: LEVOTHYROXINE SODIUM 125 MCG TABLET PO SCH (05:38)
[2018-07-18 06:44] LABS: BUN Creatinine Ratio 12.2 (10-20); Calcium 8.3 mg/dl (8.5-10.1); Creatinine Clr Calc Pharmacy 50.5 ml/min; Est GFR (Non-African American) 46.6; Potassium 4.2 mmol/L (3.5-5.1)
--- NOTE | 2018-07-18 08:14 | Progress Note ---
DATE: 07/18/2018 SUBJECTIVE: A 63-year-old gentleman postop day 1 from a left revision knee replacement. He is doing pretty well. He is a little bit more sore this time than with his previous knee surgeries. No chest pain, no shortness of breath. Not feeling dizzy or lightheaded. OBJECTIVE: VITAL SIGNS: Temperature 37.3. Stable. GENERAL: Examination shows a pleasant middle-aged male. He is sitting up in bed and looks pretty comfortable. RESPIRATORY: Lungs are clear to auscultation. CARDIOVASCULAR: Heart has a regular rate and rhythm. GASTROINTESTINAL: Abdomen is soft, nontender, nondistended. EXTREMITIES: Grossly neurovascularly intact except as follows: Examination of the left leg reveals the leg to be well aligned. Dressing is clean, dry, and intact. He can dorsiflex and plantarflex his foot appropriately. He is neurologically intact. LABORATORY DATA: Hemoglobin 15.2, hematocrit 45.3. Electrolytes are stable. He has a chronically elevated creatinine. ASSESSMENT: A 63-year-old gentleman postop day 1 from a left revision knee replacement, doing pretty well. There were no signs of infection. Knee looks good. He is neurologically intact. PLAN: 1. DVT prophylaxis including thigh-high TEDs, SCDs, and aspirin twice a day. 2. PT/OT. Weight bear as tolerated. Left total knee protocol. 3. Pain control. Doing reasonably well with current pain regimen. 4. Disposition: He is going to be discharged to home and likely do outpatient therapy.
[2018-07-18] MEDS: FERROUS GLUCONATE 324 MG TAB PO SCH ×2 (08:36→16:29)
[2018-07-18] MEDS: CHECK SCOPOLAMINE PATCH PLACEMENT SCH ×3 (08:36→23:10)
[2018-07-18] MEDS: ASCORBIC ACID 500 MG TAB PO SCH (08:36)
[2018-07-18] MEDS: ASPIRIN 81 MG ECTAB PO SCH ×2 (08:37→21:14)
[2018-07-18] MEDS: MULTIVITAMIN TAB PO SCH (08:37)
[2018-07-18] MEDS: PANTOprazole 40 MG TAB PO SCH (08:37)
[2018-07-18] MEDS: CHOLECALCIFEROL 1,000 UNITS TAB PO SCH (08:37)
[2018-07-18] MEDS: LACTOBACILLUS ACIDOPHILUS (FLORANEX) TAB PO SCH (08:38)
[2018-07-18] MEDS: TAPENTADOL HCL ER 50 MG TABCR PO SCH ×2 (08:42→21:12)
[2018-07-18] MEDS ORDERED: MULTIVITAMIN TAB PO SCH (09:00)
[2018-07-18] MEDS ORDERED: [UNRECOGNIZED DRUG - MIXTURE] PO SCH (09:00)
[2018-07-18] MEDS: DOCUSATE SODIUM 100 MG CAP PO SCH ×2 (10:18→21:13)
[2018-07-18] MEDS: TAMSULOSIN HCL 0.4 MG CAP PO SCH (21:15)
[2018-07-18] MEDS: SENNA 8.6 MG TAB PO SCH (21:15)
[2018-07-19] MEDS: OXYCODONE HCL IR 5 MG TAB (IMMEDIATE RELEASE) PO PRN ×2 (04:32→09:36)
[2018-07-19] MEDS: KETOROLAC TROMETHAMINE 15 MG/ML VIAL IV SCH (04:33)
[2018-07-19] MEDS: LEVOTHYROXINE SODIUM 125 MCG TABLET PO SCH (05:57)
[2018-07-19] MEDS: ACETAMINOPHEN 500 MG TAB PO SCH (05:57)
[2018-07-19 06:12] LABS: BUN Creatinine Ratio 13.4 (10-20); Calcium 8.1 mg/dl (8.5-10.1); Creatinine Clr Calc Pharmacy 51.9 ml/min; Est GFR (African American) 55.8; Est GFR (Non-African American) 48.1
[2018-07-19] MEDS: FERROUS GLUCONATE 324 MG TAB PO SCH (07:58)
[2018-07-19] MEDS: CHECK SCOPOLAMINE PATCH PLACEMENT SCH (07:59)
[2018-07-19] MEDS: DOCUSATE SODIUM 100 MG CAP PO SCH (07:59)
[2018-07-19] MEDS: LACTOBACILLUS ACIDOPHILUS (FLORANEX) TAB PO SCH (08:00)
[2018-07-19] MEDS: ASPIRIN 81 MG ECTAB PO SCH (08:00)
[2018-07-19] MEDS: MULTIVITAMIN TAB PO SCH (08:01)
[2018-07-19] MEDS: PANTOprazole 40 MG TAB PO SCH (08:01)
[2018-07-19] MEDS: ASCORBIC ACID 500 MG TAB PO SCH (08:01)
[2018-07-19] MEDS: CHOLECALCIFEROL 1,000 UNITS TAB PO SCH (08:02)
[2018-07-19] MEDS: TAPENTADOL HCL ER 50 MG TABCR PO SCH (08:14)
[2018-07-19] MEDS ORDERED: ASCORBIC ACID 500 MG TAB PO SCH (09:00)
--- NOTE | 2018-07-19 09:51 | Progress Note ---
DATE: 07/19/2018 SUBJECTIVE: This is a 63-year-old gentleman postop day 2 from a left revision of a partial to full knee replacement. He is doing pretty well. Pain is a little bit better today. No chest pain, no shortness of breath. Not feeling dizzy or lightheaded. OBJECTIVE: VITAL SIGNS: Temperature 36.8. Stable. GENERAL: Examination shows a pleasant middle-aged male. He is sitting on bed and looks pretty comfortable. EXTREMITIES: Examination of the left leg reveals the dressing and incision to be clean, dry, and intact. His leg is well aligned. Really not much in the way of swelling. He can dorsiflex and plantarflex his foot appropriately. He is neurologically intact. CULTURE RESULTS: No growth to date. LABORATORY DATA: Electrolytes are stable. Creatinine is stable at baseline, which is slightly elevated. ASSESSMENT: A 63-year-old gentleman, postop day 2 from left revision of a partial to full knee replacement. He is doing pretty well. PLAN: 1. DVT prophylaxis including thigh-high TEDs, SCDs, and aspirin twice a day. 2. PT/OT. Weight bear as tolerated. Left total knee protocol. 3. Pain control, doing pretty well with current pain regimen. 4. Disposition: Plan is to discharge to home later today.
--- NOTE | 2018-07-23 17:15 | Discharge Summary ---
ADMITTING PHYSICIAN AND SURGEON: Yuniel Colon MD. ADMITTING DIAGNOSIS: Left painful partial knee replacement. SURGERY PERFORMED: Left revision total knee replacement from partial knee to full knee replacement. SECONDARY DIAGNOSES: Benign prostatic hypertrophy, hypothyroidism. CONSULTS: None obtained. HISTORY AND PHYSICAL EXAMINATION: Well documented in the patient's chart. HOSPITAL COURSE: Patient was admitted on 07/17/2018 and underwent revision of a partial knee to a total knee replacement, tolerated the procedure well. There were no complications. He was transferred to the PACU postoperatively and later to the orthopedic floor for further care. He was given Ancef for antibiotic prophylaxis and ANTONIA stockings, SCDs, and aspirin for DVT prophylaxis. Hemoglobin, hematocrit, and vital signs were monitored during his hospital stay and remained stable. He did not require any blood transfusions. There were no complications. On postoperative day 2, he was tolerating a regular diet. Pain was controlled with oral pain medicine. He was participating in physical therapy. On postop day 2, he was discharged home. He was given printed discharge instructions including new prescriptions for extra strength Tylenol, aspirin, and oxycodone. Continue his home medications, continue physical therapy, weightbearing as tolerated, ANTONIA stockings. Follow up in approximately 2 weeks postoperatively or sooner if there are any problems or concerns.
== END 2018-07-19 10:10 | disposition home or self-care (01) | DRG 465 ==
LOC: ASU 08:02 → 3E 14:06